=== PATIENT | female | born 2005 | race Caucasian/White ===

== ENCOUNTER 2024-10-23 16:46 | Emergency (ER) | payer BC, SELFPAY ==
[2024-10-23 16:58] VITALS: BP 125/73; PULSE 77; RESP 12; TEMP 37.4; O2SAT 99; BMI 19.5
--- NOTE | 2024-10-23 17:19 | DI.RAD.S_ITS ---
PROCEDURE: XR CHEST 2V INDICATIONS: r/o foreign body TECHNIQUE: 2 views of the chest were acquired. COMPARISON: None. FINDINGS: Surgical changes and devices: None. Lungs and pleura: Lungs are clear. No pleural effusions or pneumothorax. Mediastinum: Mediastinal contours are normal. Heart size is normal. Bones and chest wall: No suspicious bony abnormalities. Soft tissues appear unremarkable. IMPRESSION: No acute cardiopulmonary abnormalities or focal consolidation. No radiopaque soft tissue foreign body identified. Dictated by: Pardeep Jurado M.D. on 10/23/2024 at 17:43 Approved by: Pardeep Jurado M.D. on 10/23/2024 at 17:43
[2024-10-23 18:33] VITALS: BP 117/66; PULSE 77; O2SAT 99
--- NOTE | 2024-10-23 18:47 | PC.NURSE ---
Pt lung sounds clear and equal throughout all anterior appiah including upper airway. Pt is able to maintain her own airway and secretions. She does not appear in any respiratory distress. States difficulty breathing last week but none at this time.
--- NOTE | 2024-10-23 19:08 | ED_ITS ---
HPI - Skin/Abscess/Foreign Bdy General Chief complaint: Skin/Abscess/Foreign Body Stated complaint: feels like something stuck in throat Time Seen by Provider: 10/23/24 17:27 Source: patient Mode of arrival: Ambulatory History of Present Illness HPI narrative: 19-year-old female no significant past medical history presenting for globus sensation, she states that she felt some globus sensation to her throat/middle of her chest proximally 1 week ago, she states that symptoms have improved but had persistent therefore decided come into the ED for further evaluation treatment. She has been able tolerate p.o. liquids and solids but slightly decreased secondary to her symptoms she is just worried that something ?got stuck. Patient not complaining of any other symptoms at this time Related Data Allergies Allergy/AdvReac Type Severity Reaction Status Date / Time No Known Drug Allergies Allergy Verified 10/23/24 16:58 Review of Systems Review of Systems Narrative: General: Denies fever, chills, weight loss HEENT: Denies headache, eye drainage, eye irritation, head trauma, sore throat, voice change Cardiovascular: Denies any chest pain, palpitations, tachycardia Respiratory: Denies any shortness of breath, cough, wheeze, stridor GI/: Positive Globus sensation Denies any abdominal pain, nausea, vomiting, diarrhea, bright red blood per rectum, melanotic stools, urinary frequency, urinary retention, dysuria, hematuria MSK: Denies any joint pain, muscle pains, swelling Skin: Denies any rashes, lesions, discoloration Neuro: Denies any headache, lightheadedness, dizziness, fainting, weakness Psych: Denies SI/HI Patient History Smoking Status: Never smoker Exam Narrative Exam Narrative: General: Cooperative, well-developed, not in acute distress HEENT: Normocephalic, atraumatic, PERRLA, normal sclera, eyelids normal, posterior oropharynx clear without any signs of obstruction patient is speaking full sentences protecting airway no voice changes no stridor no trismus Neck: Active full range of motion, atraumatic Chest: Normal to inspection, negative crepitus, no overlying erythema ecchymosis Respiratory: Normal respiratory effort, not in acute respiratory distress, clear to auscultation bilaterally negative cough, wheeze, tachypnea, rhonchi, rales Cardiology: Regular rate rhythm negative gallop, murmur, rubs GI/: No tenderness to palpation, soft, non rigid, normal to inspection, exam deferred MSK: Full active range of motion in all 4 extremities, atraumatic, no tenderness to palpation of any bony prominences Skin: No rashes or lesions noted Neuro: Alert awake oriented x3, moves all 4 extremities spontaneously, cranial nerves intact, able to answer all questions appropriately follows commands appropriately Psych: Cooperative, negative suicidal or homicidal ideations Initial Vital Signs Initial Vital Signs: Vital Signs Temperature 99.3 F 10/23/24 16:58 Pulse Rate 77 10/23/24 16:58 Respiratory Rate 12 10/23/24 16:58 Blood Pressure 125/73 10/23/24 16:58 Pulse Oximetry 99 10/23/24 16:58 Oxygen Delivery Method Room Air 10/23/24 16:58 Course Orders Ordered: ED Orders 10/23/24 17:19 XR chest 2V Stat Vital Signs Vital signs: Vital Signs - 8 hr 10/23/24 16:58 10/23/24 18:33 10/23/24 18:33 Temperature 99.3 F Pulse Rate 77 77 Respiratory Rate 12 Blood Pressure 125/73 117/66 Pulse Oximetry 99 99 Oxygen Delivery Method Room Air MDM - Skin/Abscess/Foreign Bdy Differential Diagnosis Differential diagnosis: Likely other (Globus sensation, foreign body ingestion) Imaging Data Chest x-ray: Radiologist's Impression: [place] [address] XRay Report Signed Patient: Briana Waite MR#: [id number] : 2005 Acct:[id number] Age/Sex: 19 / F Date of Service: 10/23/24 Loc: ED Accession Number: [id number] Procedure: XR chest 2V Ordering Provider: Marii Laura PA-C PROCEDURE: XR CHEST 2V INDICATIONS: r/o foreign body TECHNIQUE: 2 views of the chest were acquired. COMPARISON: None. FINDINGS: Surgical changes and devices: None. Lungs and pleura: Lungs are clear. No pleural effusions or pneumothorax. Mediastinum: Mediastinal contours are normal. Heart size is normal. Bones and chest wall: No suspicious bony abnormalities. Soft tissues appear unremarkable. IMPRESSION: No acute cardiopulmonary abnormalities or focal consolidation. No radiopaque soft tissue foreign body identified. MDM Narrative Medical decision making narrative: 19-year-old female no significant past medical history presents for wellness sensation for proximally 1 week, states that symptoms started spontaneously about a week ago states that it has been getting slightly better but is still persistent she has been able tolerate p.o. liquids and solids however she states that it is decreased secondary to her symptoms. She states that she is already on a PPI b.i.d., here patient had chest x-ray without any signs of obstruction, on exam posterior oropharynx is clear without any signs of obstruction no voice changes no stridor no trismus was able to tolerate p.o. liquids and solids here patient was instructed to follow up with GI and primary care in outpatient setting for possible esophageal dysmotility or esophageal spasm, she was given strict return precautions he verbalized understanding of this and agrees to being discharged home with outpatient follow up Discharge Plan Departure Patient Disposition: Home Clinical Impression: Globus sensation Activity Restrictions/Additional Instructions: Please follow up with GI and primary care Please read the discharge instructions sheet carefully and bring all papers to all doctor follow-up visits, as it may contain information that your doctor may want to see. Disease processes change and evolve, if your symptoms worsen or if you develop any new symptoms that are concerning to you please return for evaluation. Your evaluation today does not show any evidence of any life- threatening/serious illnesses requiring admission to the hospital or surgery. Please follow-up with your doctor for re-evaluation in approximately 1 day. Seek immediate medical attention for any worrisome symptoms. *If you do not have a primary care provider please contact the [facility] Resource line at [phone]. They will ask some questions about your medical history and help get you set up with a doctor in the community. Referrals: Jeremy Mansfield MD [Non-Staff] - (GI referral) Stand Alone Forms: Patient Portal/API/Survey
[2024-10-23 19:17] VITALS: BP 112/78; PULSE 65; RESP 19; O2SAT 98
== END 2024-10-23 19:18 | disposition home or self-care (01) ==
PROVIDERS: Emergency Provider Student in an Organized Health Care Education/Training Program
DX: R09.A2 Foreign body sensation, throat (principal)
CPT/HCPCS: 71046; 99281; 99283

== ENCOUNTER → 2025-04-09 10:42 | Outpatient (CLI) | payer BC, OTHER, SELFPAY ==
--- NOTE | 2025-04-09 10:45 | DI.US.S_ITS ---
PROCEDURE: US PELVIC COMPLETE INDICATIONS: IRREG CYCLE TECHNIQUE: Real-time scanning was performed of the pelvic organs, with image documentation. Additional endovaginal scanning was necessary due to incomplete visualization of the adnexal and endometrial structures by transabdominal scanning. COMPARISON: None. FINDINGS: Uterus: Uterus is anteverted and normal in size at 7.8 x 5.2 x 3.2 cm. The myometrium is homogeneous. The endometrium measures 8 mm combined thickness. Ovaries: The right ovary measures 4.3 x 2.9 x 2.6 cm, with a calculated ovarian volume of 17 cc. The left ovary measures 3.5 x 2.7 x 2.5 cm, with a calculated ovarian volume of 12.4 cc. The ovaries have a normal sonographic appearance. Greater than 12 follicles noted in the bilateral ovaries. No adnexal masses are seen. Other: No pathologic free abdominal or pelvic fluid. IMPRESSION: Pelvis without acute sonographic abnormalities. Prominent bilateral ovarian volumes with greater than 12 follicles noted in each ovary. Findings meet the [place] definition of polycystic ovaries. In the absence of ovulatory dysfunction or clinically/biochemically diagnosed hyperandrogenism, findings are non specific and do not indicate the presence of polycystic ovarian syndrome. We strive to produce accurate, complete, and clear reports of imaging services. To assist us in improving patient care, this report was composed using standard report templates and voice recognition software. Therefore, it may contain abnormal punctuation, insertions and/or omissions. Occasional wrong-word or sound-alike substitutions may occur. Though we review the report and make efforts to correct it, we do recommend that the report be read carefully in proper context to recognize any text inaccuracies. Dictated by: Pardeep Jurado M.D. on 04/09/2025 at 15:15 Approved by: Pardeep Jurado M.D. on 04/09/2025 at 15:24
== END ==
LOC: US 10:43
PROVIDERS: PCP Family Medicine; Referring Provider Family Medicine; Visit Provider Family Medicine
DX: N92.0 Excessive and frequent menstruation with regular cycle (principal); N94.6 Dysmenorrhea, unspecified
CPT/HCPCS: 76830; 76856

== ENCOUNTER → 2025-04-24 13:03 | Outpatient (CLI) | payer OTHER, BC, SELFPAY ==
[2025-04-24 13:44] LABS: Hematocrit 40.8 % (36-46); Hemoglobin 13.9 g/dL (12.0-16.0); Mean Corpuscular HGB Conc 34.0 % (30-36); Mean Corpuscular Hemoglobin 30.8 PG (26-34); Mean Corpuscular Volume 90.4 fL (80-100); Platelet Count 267 X10^3/uL (150-400)
[2025-04-24 14:05] LABS: Alanine Aminotransferase 18 IU/L (<35); Albumin 4.8 g/dL (3.5-5.0); Albumin Globulin Ratio 1.5 (1.0-2.8); Alkaline Phosphatase 68 U/L (38-126); Blood Urea Nitrogen 14 mg/dL (7-17); Calcium 9.3 mg/dL (8.4-10.2); Carbon Dioxide 21 mmol/L (22-32); Chloride 105 mmol/L (98-107); Estimated Glomerular Filt Rate > 60 mL/min (>60); Globulin 3.2 g/dL (1.7-4.1); Glucose 89 mg/dL (70-99); HEMOLYSIS < 15 (0-50); Potassium 4.2 mmol/L (3.4-5.1); Sodium 139 mmol/L (137-145); Total Protein 8.0 g/dL (6.3-8.2)
[2025-04-24 14:32] LABS: TSH w/ Reflex to FT4 1.39 uIU/mL (0.47-4.68)
[2025-04-24 15:57] LABS: Follicle Stimulating Hormone 2.25 mIU/mL; Progesterone, Total 8.39 ng/mL
== END ==
PROVIDERS: PCP Family Medicine; Referring Provider Family Medicine; Visit Provider Family Medicine
DX: N92.6 Irregular menstruation, unspecified (principal)
CPT/HCPCS: 36415; 80053; 82672; 83001; 83002; 84144; 84146; 84403; 84443; 85027